=== PATIENT | male | born 1950 | race Caucasian/White ===

== ENCOUNTER 2023-10-06 13:11 | Emergency (ER) | payer MEDICARE ==
[~2023-10-06] VITALS: Ht 175.3 cm; Wt 64.0 kg
[2023-10-06 13:18] VITALS: O2SAT 97
[2023-10-06] MEDS ORDERED: AZITHROMYCIN 500MG/250ML 250 ML IV ONE (13:30)
[2023-10-06] MEDS ORDERED: CEFTRIAXONE 1GM PREMIX 50 ML IV ONE (13:30)
[2023-10-06] MEDS ORDERED: SODIUM CHLORIDE 0.9% 1000ML BAG (SEPSIS BOLUS) IV ONE (13:30)
[2023-10-06 14:04] LABS: BASOPHILS % 0.7 % (0.0-2.0); EOSINOPHILS % 0.1 % (0.0-5.0); HEMATOCRIT. 38.6 % (42.0-52.0); HEMOGLOBIN. 12.8 g/dL (14.0-18.0); LYMPHOCYTES % 7.2 % (20.0-50.0); MEAN CORPUSCULAR HEMOGLOBIN 31.6 pg (28.0-32.0); MEAN CORPUSCULAR HGB CONC 33.2 g/dL (31.0-37.0); MEAN CORPUSCULAR VOLUME 95.2 fL (80.0-94.0); MEAN PLATELET VOLUME 8.3 fl (7.4-10.4); MONOCYTES % 9.6 % (2.0-8.0); NEUTROPHILS % 82.4 % (40.0-76.0); PLATELET 229 x1000/uL (130-400); RED BLOOD CELL COUNT 4.05 mill/uL (4.7-6.1); RED CELL DISTRIBUTION WIDTH 14.5 % (11.6-14.6); WHITE BLOOD COUNT 8.2 x1000/uL (4.5-11.0)
[2023-10-06 14:13] LABS: PARTIAL THROMBOPLASTIN TIME 35.9 sec (23.4-31.0); PROTHROMBIN TIME 11.2 sec (9.6-11.0)
[2023-10-06 14:17] LABS: ALANINE AMINOTRANSFERASE 28 IU/L (10-49); ALBUMIN 4.1 g/dL (3.2-4.8); ASPARTATE AMINOTRANSFERASE 39 IU/L (<34); BILIRUBIN TOTAL 0.6 mg/dL (0.1-1.0); CALCIUM 8.7 mg/dL (8.7-10.4); CARBON DIOXIDE 26 mEq/L (21-32); CHLORIDE 98 mEq/L (98-107); CREATININE 0.9 mg/dL (0.6-1.3); GLUCOSE 102 mg/dL (70-105); POTASSIUM 4.1 mEq/L (3.5-5.1); PROTEIN TOTAL 6.6 g/dL (6.0-8.3); SODIUM 132 mEq/L (136-145); TROPONIN I HIGH SENSITIVITY 15 ng/L (3.0-53); UREA NITROGEN BLOOD 19 mg/dL (9-23)
[2023-10-06 14:23] LABS: LACTIC ACID 2.1 mmol/L (0.4-2.0)
[2023-10-06] MEDS ORDERED: OSELTAMIVIR 75MG CAPSULE PO ONE (16:15)
[2023-10-06 16:23] LABS: CLARITY URINE CLEAR (CLEAR); COLOR URINE YELLOW (YELLOW); GLUCOSE URINE NEGATIVE (NEGATIVE); KETONES URINE TRACE (NEGATIVE); LEUKOCYTE ESTERASE URINE NEGATIVE (NEGATIVE); NITRITE URINE NEGATIVE (NEGATIVE); OCCULT BLOOD URINE NEGATIVE (NEGATIVE); PROTEIN URINE 1+ (NEGATIVE); SPECIFIC GRAVITY URINE 1.021 (1.005-1.030)
[2023-10-06 16:41] LABS: BACTERIA URINE NONE SEEN; RBC URINE NONE SEEN /hpf (0-2); SQUAMOUS EPITHELIAL CELL URINE 1+ /lpf (RARE/1+); WBC URINE 0-2 /hpf (0-2)
[2023-10-06 17:35] VITALS: TEMP 98.9
[2023-10-06] MEDS ORDERED: ACETAMINOPHEN 325MG TABLET PO ONE (17:45)
[2023-10-06] MEDS ORDERED: LORAZEPAM 2MG/ML CPJ IV ONE (17:45)
[2023-10-06] MEDS ORDERED: LORAZEPAM 4MG/ML VIAL IV NR (18:00)
[2023-10-06 22:55] VITALS: BP 129/79; PULSE 82; RESP 16
== END 2023-10-06 23:25 | disposition short-term general hospital (02) ==
LOC: ER 13:11 → CANBEDREQ 10-07 10:43
DX: A41.9 Sepsis, unspecified organism (principal); R65.20 Severe sepsis without septic shock; J10.1 Influenza due to other identified influenza virus with other respiratory manifestations; R55 Syncope and collapse; R05.9 Cough, unspecified; Z20.822 Contact with and (suspected) exposure to COVID-19
CPT/HCPCS: 80053; 81003; 83605; 85025; 85610; 85730; 87040; 87086; 84484; 87804 ×2; 36415; 84145; 71045; 70450; 72192; 93005; 96367; 96361; 96365; 99291; 87426; J0456; J0696; J2060; J7030; C9803; Z7610 ×5